=== PATIENT | male | born 1960 | race Two or more races ===

== ENCOUNTER 2017-10-13 13:55 | Outpatient (CLI) | payer OTHER | END 2017-10-13 13:57 | disposition home or self-care (01) | LOC: LAB 13:55 | DX: R97.20 Elevated prostate specific antigen [PSA] (principal) ==

== ENCOUNTER 2017-11-03 10:02 | Emergency (ER) | payer OTHER ==
[~2017-11-03] VITALS: Ht 177.8 cm; Wt 98.9 kg
[2017-11-03] MEDS ORDERED: BENAZEPRIL HCL10 MG (10:41)
[2017-11-03] MEDS ORDERED: TAMS0.4C (10:41)
[2017-11-03] MEDS ORDERED: XARELTO20 MG PO (20:40)
[2017-11-03] MEDS ORDERED: XARELTO15 MG PO (20:40)
== END 2017-11-03 22:24 | disposition home or self-care (01) ==
LOC: ER 10:02
DX: I82.442 Acute embolism and thrombosis of left tibial vein (principal); R60.0 Localized edema

== ENCOUNTER 2018-02-19 07:33 | Outpatient (CLI) | payer OTHER ==
[~2018-02-19 07:33] MED LIST: BENAZEPRIL HCL10 MG; TAMS0.4C; XARELTO15 MG PO; XARELTO20 MG PO
== END 2018-02-19 08:18 | disposition home or self-care (01) ==
LOC: SONOGRAMA 07:33
DX: R97.20 Elevated prostate specific antigen [PSA] (principal)

== ENCOUNTER 2018-03-09 11:05 | Outpatient (CLI) | payer OTHER | END 2018-03-09 11:14 | disposition home or self-care (01) | LOC: NUCLEAR 11:05 | DX: C61 Malignant neoplasm of prostate (principal) | CPT/HCPCS: 78306; A9503 ==